=== PATIENT | male | born 1995 | race American Indian/Alaskan Native ===

== ENCOUNTER 2019-09-09 21:47 | Emergency (ER) | payer SELFPAY ==
[2019-09-09 21:55] VITALS: BP 114/76
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
== END 2019-09-09 22:22 | disposition home or self-care (01) ==
LOC: ED 21:47
DX: S50.811A Abrasion of right forearm, initial encounter (principal); J45.909 Unspecified asthma, uncomplicated; F17.200 Nicotine dependence, unspecified, uncomplicated; Z98.890 Other specified postprocedural states; X99.8XXA Assault by other sharp object, initial encounter; Y93.89 Activity, other specified; Y92.009 Unspecified place in unspecified non-institutional (private) residence as the place of occurrence of the external cause; Y99.8 Other external cause status
CPT/HCPCS: 99283

== ENCOUNTER 2020-01-14 21:07 | Emergency (ER) | payer MEDICAID ==
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
[2020-01-15 01:25] VITALS: BP 120/72
== END 2020-01-15 00:58 | disposition home or self-care (01) ==
LOC: ED 21:07
DX: S82.891A Other fracture of right lower leg, initial encounter for closed fracture (principal); S99.911A Unspecified injury of right ankle, initial encounter; J45.909 Unspecified asthma, uncomplicated; F17.200 Nicotine dependence, unspecified, uncomplicated; X58.XXXA Exposure to other specified factors, initial encounter; Y93.89 Activity, other specified; Y92.89 Other specified places as the place of occurrence of the external cause; Y99.8 Other external cause status
CPT/HCPCS: 99282

== ENCOUNTER 2021-05-06 18:41 | Emergency (ER) | payer MEDICAID ==
--- NOTE | 2021-05-06 21:07 | XRay Report ---
Right shoulder-3 views INDICATION: POSSIBLE DISLOCATION. COMPARISON: None available. IMPRESSION: No acute osseous abnormality. Normal alignment. No significant DJD. Soft tissues are u nremarkable. Signer Name: Silver Salas MD Signed: 05/06/2021 9:03 PM Workstation Name: [id number]
[2021-05-07] MEDS ORDERED: HYDROcodone/ACETAMINOPHEN 5-325 MG TAB PO STA (05:48)
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
[2021-05-07 07:30] VITALS: BP 124/74
== END 2021-05-07 07:30 | disposition home or self-care (01) ==
LOC: ED 18:41
DX: S40.011A Contusion of right shoulder, initial encounter (principal); F17.200 Nicotine dependence, unspecified, uncomplicated; J45.909 Unspecified asthma, uncomplicated; W19.XXXA Unspecified fall, initial encounter; Y93.89 Activity, other specified; Y92.89 Other specified places as the place of occurrence of the external cause; Y99.8 Other external cause status
CPT/HCPCS: 99283